=== PATIENT | male | born 1985 | race Caucasian/White ===

== ENCOUNTER 2024-05-01 11:55 | Emergency (ER) | payer BC, SELFPAY ==
[2024-05-01 11:58] VITALS: BP 145/106
[2024-05-01 12:24] LABS: % Basophils 0.8 % (0-2); % Eosinophils 2.1 % (0-6); % Immature Granulocytes 0.3 % (0-0.5); % Lymphocytes 24.7 % (20.5-51.1); % Neutrophils 63.1 % (42.2-75.2); Absolute Basophils 0.1 10^3/uL (0-0.2); Absolute Eosinophils 0.1 10^3/uL (0-0.7); Absolute Lymphocytes 1.6 10^3/uL (1.2-3.4); Absolute Monocytes 0.6 10^3/uL (0.1-0.6); Hemoglobin 15.6 g/dL (13.0-18.0); Mean Corp Hgb Conc. 35.5 g/dL (33.0-37.0); Mean Corpuscular Hgb 31.6 pg (27.0-31.0); Mean Corpuscular Volume 89.1 fL (80.0-94.0); Mean Platelet Volume 8.8 fL (7.4-10.4); Nucleated Red Blood Cells % 0 % (-); Platelet Count 245 10^3/uL (130-400); Red Blood Cell Count 4.94 10^6/uL (4.70-6.10); Red Cell Dist. Width 12.3 % (11.5-14.5); White Blood Cell Count 6.3 10^3/uL (4.8-10.8)
[2024-05-01 12:38] LABS: ALT (SGPT) 70 U/L (0-50); AST (SGOT) 32 U/L (17-59); Albumin 5.1 g/dl (3.5-5.0); Alkaline Phosphatase 64 U/L (38-126); Blood Urea Nitrogen 19 mg/dl (9-20); Calcium 9.8 mg/dl (8.4-10.2); Carbon Dioxide 26 mmol/L (22-30); Chloride 102 mmol/L (98-107); Glucose 106 mg/dl (70-99); Potassium 4.4 mmol/L (3.5-5.1); Sodium 138 mmol/L (135-145); Total Bilirubin 1.1 mg/dl (0.2-1.3); Total Protein 7.5 g/dl (6.3-8.2); eGFR > 60.00
--- NOTE | 2024-05-01 13:42 | ED.GENMED ---
History of Present Illness
General
Chief Complaint: Numbness
Source: patient
Time Seen by Provider: 05/01/24 13:28
History of Present Illness
History of Present Illness:
This patient is a 38-year-old male presents emergency department complaints of numbness and tingling in the left arm that started over the weekend and continues. He says he gets the same symptoms 'from time to time', and it usually goes away in a
day or 2. He denies specific provoking or relieving factors, and he denies recent trauma, falls, heavy lifting. He states that he sleeps on his right side and he wonders if this is the reason for his symptoms. He denies neck pain, back pain,
chest pain, headache, dizziness, change in vision, change in speech, change in balance, redness, warmth, swelling. He denies weakness or clumsiness.
Past History
Past History
ED Past Medical History: None
ED Past Surgical History: None
Social History
Tobacco: Non-smoker
Alcohol: Occasional
Drug: None
Personal:
Living: with family
Employment: Employed
Phy Exam
Physical Exam
Physical Exam:
GENERAL: Alert , in no apparent distress
EYE: pupils equal and reactive, EOMI, no photophobia, nystagmus
NECK: Supple, no significant adenopathy, no midline tenderness, no bruit.
ENT: o/p clr, mmm.
CARDIAC: Regular rate and rhythm .
LUNGS: Clear breath sounds bilaterally, no acute respiratory distress, no wheezes/rales/rhonchi
ABDOMEN: Soft, without focal tenderness, no r/g, no cvat
NEUROLOGICAL: Alert and oriented, no focal neuro deficits, sensation intact to light touch throughout, [id number] normal, motor 5 out of 5, sensory intact, cranial nerves II through XII intact
SKIN: Warm and dry, skin intact.
MUSCULOSKELETAL: No edema, well perfused.
PSYCH: Normal and appropriate interaction.
Course
Orders/Labs/Results
Orders:
Orders
05/01/24 12:04
Complete Blood Count/With Diff Urgent
Comprehensive Metabolic Panel Urgent
05/01/24 13:42
Electrocardiogram (*1) Urgent
Reason for Study: Other
Other Reason for Exam: L ARM N/T
CT Head W/o Iv Contrast Urgent
Comment:
Reason For Exam: NUMBNESS/TINGLING L ARM
EKG- Treatment ONCE
Abnormal Lab Results
05/01/24
12:04
MCH 31.6 H pg
(27.0-31.0)
Glucose 106 H mg/dl
(70-99)
ALT 70 H U/L
(0-50)
Albumin 5.1 H g/dl
(3.5-5.0)
05/01/24 12:04
05/01/24 12:04
Vital Signs
Initial and Last Documented VS:
Initial Vital Signs
Temp Pulse Resp BP Pulse Ox
98.5 F 94 16 145/106 98
05/01/24 11:58 05/01/24 11:58 05/01/24 11:58 05/01/24 11:58 05/01/24 11:58
Last Documented Vital Signs
Temp Pulse Resp BP Pulse Ox
98.5 F 76 18 136/90 96
05/01/24 11:58 05/01/24 14:45 05/01/24 14:45 05/01/24 14:45 05/01/24 14:45
*Critical Care Note
Total Time (30-74mins, 75-104mins- exclusive of procedures): Not Applicable
Update Note
Update Note:
Patient presents to the Emergency Department with ___left arm numbness tingling
Number and Complexity of Problems Addressed at the Encounter
� Chronic conditions affecting care:
� Acute Exacerbation and/or Progression of Chronic Illness:
� Differential Diagnosis includes: But not limited to cervical stenosis, radiculopathy, ACS, electrolyte disorder, etc. etc.
Amount and/or Complexity of Data to be Reviewed and Analyzed
� I performed an independent evaluation of and my interpretation is:
EKG: Read by me, normal sinus rhythm, normal rate, normal axis, no acute ischemia
CT: Read by radiology, head CT NAD
Xrays:
Laboratory Studies: Generally unremarkable
Other:
� Review of other/old records reveals:
� Clinical information was obtained by an independent historian:
� Prescriptions/Medications Considered but not given:
� Further testing considered but not performed:
Risk of Complications and/or Morbidity or Mortality of Patient Management
� Social determinants of health affecting care:
� Discussion with other providers (PCP, Hospitalists, Consultants, etc):
� Escalation of care including admission/observation vs risk of discharge considered: Patient stable here, highly doubt acute neurological event such as TIA/CVA, etc. Did tell patient that symptoms may be related to a
radiculopathy/cervical stenosis, encourage close outpatient follow-up, discussed the importance of follow-up and research into the ER.
ED Attending Note
-
Portions of this chart may have been created with voice recognition software.� Occasional wrong word or��sound alike� substitutions may have occurred due to the inherent limitations of voice recognition software.
Discharge Plan
Departure
Patient Disposition: Home (Routine Discharge)
Date of Disposition: 05/01/24
Time of Disposition: 15:37
Patient with high blood pressure during this ER visit?: Yes
Condition: Good
Discharge Problem:
Tingling
Instructions: Paresthesia (DC), BLOOD PRESSURE
Referrals:
Annemarie Foote MD [Family Provider] - Tomorrow
Activity Restrictions/Additional Instructions:
IF YOU DEVELOP WEAKNESS, CLUMSINESS, SEVERE NECK PAIN, SEVERE HEADACHE, CHANGE IN VISION, CHANGE IN SPEECH, CHANGE IN BALANCE, CHEST PAIN, SHORTNESS OF BREATH, NEW OR PERSISTENT NUMBNESS TINGLING, OR OTHER WORRISOME SIGNS, PLEASE RETURN TO THE ER
IMMEDIATELY.
Interventions
Interventions:
*Risk Screen - Suicide Last Done: 05/01/24 11:58
*General Assessment Last Done: 05/01/24 11:58
*Neglect/Abuse Screening Last Done: 05/01/24 11:58
*ED COVID-19 Vaccine History Last Done: 05/01/24 11:58
ED- Neurological Assessment Last Done: 05/01/24 13:09
Discharge Date and Time
Print Language: LATVIAN
[2024-05-01 14:45] VITALS: BP 136/90
== END 2024-05-01 15:45 | disposition home or self-care (01) ==
LOC: EMR 11:55
PROVIDERS: Emergency Medicine; EMERGENCY PHYSICIAN Emergency Medicine; FAMILY PHYSICIAN Internal Medicine
DX: R20.2 Paresthesia of skin (principal); R03.0 Elevated blood-pressure reading, without diagnosis of hypertension
CPT/HCPCS: 99284; 70450; 80053; 85025; 93005

== ENCOUNTER → 2024-07-28 12:33 | Outpatient (REF) | payer BC, SELFPAY | LOC: HWRAD 12:33 | PROVIDERS: ATTENDING PHYSICIAN Chiropractor; FAMILY PHYSICIAN Nurse Practitioner Family | DX: M54.2 Cervicalgia (principal); M54.6 Pain in thoracic spine | CPT/HCPCS: 72050; 72072 ==